=== PATIENT | female | born 1975 | race Caucasian/White ===

== ENCOUNTER 2024-06-22 12:20 | Emergency (ER) | payer BC, SELFPAY ==
[2024-06-22 12:24] VITALS: BP 179/108
[2024-06-22 13:27] LABS: % Basophils 0.4 % (0-2); % Eosinophils 0.2 % (0-6); % Immature Granulocytes 0.5 % (0-0.5); % Lymphocytes 16.4 % (20.5-51.1); % Monocytes 4.8 % (1.7-9.3); % Neutrophils 77.7 % (42.2-75.2); Absolute Lymphocytes 0.9 10^3/uL (1.2-3.4); Absolute Monocytes 0.3 10^3/uL (0.1-0.6); Absolute Neutrophils 4.4 10^3/uL (1.4-6.5); Hematocrit 38.2 % (37.0-47.0); Hemoglobin 13.9 g/dL (12.0-16.0); Mean Corp Hgb Conc. 36.4 g/dL (33.0-37.0); Mean Corpuscular Hgb 33.8 pg (27.0-31.0); Mean Corpuscular Volume 92.9 fL (81.0-99.0); Mean Platelet Volume 10.9 fL (7.4-10.4); Nucleated Red Blood Cells % 0 %; Platelet Count 254 10^3/uL (130-400); Red Blood Cell Count 4.11 10^6/uL (4.20-5.40); Red Cell Dist. Width 11.1 % (11.5-14.5); White Blood Cell Count 5.6 10^3/uL (4.8-10.8)
[2024-06-22 13:30] LABS: HCG, Urine Qualitative Screen Negative
[2024-06-22 13:48] LABS: Blood Urea Nitrogen 8 mg/dl (7-17); Calcium 9.9 mg/dl (8.4-10.2); Carbon Dioxide 22 mmol/L (22-30); Chloride 105 mmol/L (98-107); Glucose 113 mg/dl (70-99); Potassium 3.8 mmol/L (3.5-5.1); Sodium 136 mmol/L (135-145); eGFR > 60.00
[2024-06-22 14:17] LABS: TSH Reflex To Free T4 1.15 uIU/ml (0.47-4.68)
--- NOTE | 2024-06-22 15:22 | ED.GENMED ---
History of Present Illness
General
Chief Complaint: Swallowing Problem
Source: patient
Time Seen by Provider: 06/22/24 12:43
History of Present Illness
History of Present Illness:
48yoF with no significant past medical history presenting for evaluation of a neck mass. She was speaking with her family members 4 days ago when her family members noted a lump on the right side of her neck. The mass is non-tender and seems to be
stable over the past several days. She started to have difficulty swallowing earlier today so she decided to come to the ED for evaluation. Patient denies any shortness of breath.
Past History
Past History
ED Past Medical History: None
Social History
Tobacco: Non-smoker
Alcohol: Occasional
Phy Exam
General Physical Exam
General Presentation: well appearing and no apparent distress
General age: appears stated age
General Skin: warm and dry
General Habitus: normal
General Mental: alert
ENT Exam
ENT Exam: pharynx normal, neck supple and other (+Firm, mobile mass present to the anterior right lower back in the area of the thyroid. No skin changes or warmth. )
Additional ENT: Airway patent. Tolerating oral secretions. Normal phonation.
Pulmonary Exam
Pulmonary Exam: no respiratory distress
Skin Exam
Skin Exam: normal color and warm/dry
Psychiatric Exam
Psychiatric Exam: normal mood/affect
Course
Orders/Labs/Results
Orders:
Orders
06/22/24 13:07
CT Neck With Iv Contrast Urgent
Comment:
Reason For Exam: R neck mass, dysphagia
06/22/24 13:08
Test Result ONCE
06/22/24 13:13
Basic Metabolic Panel Urgent
Complete Blood Count/With Diff Urgent
HCG, Urine Qualitative Screen Urgent
Date Specimen was Collected: 06/22/24
Time Specimen was Collected: 13:13
TSH Reflex To Free T4 Urgent
Abnormal Lab Results
06/22/24
13:13
RBC 4.11 L 10^6/uL
(4.20-5.40)
MCH 33.8 H pg
(27.0-31.0)
RDW 11.1 L %
(11.5-14.5)
MPV 10.9 H fL
(7.4-10.4)
Absolute Lymphs (auto) 0.9 L 10^3/uL
(1.2-3.4)
Neutrophils % 77.7 H %
(42.2-75.2)
Lymphocytes % 16.4 L %
(20.5-51.1)
Glucose 113 H mg/dl
(70-99)
06/22/24 13:13
06/22/24 13:13
Vital Signs
Initial and Last Documented VS:
Initial Vital Signs
Temp Pulse Resp BP Pulse Ox
97.9 F 91 18 179/108 99
06/22/24 12:24 06/22/24 12:24 06/22/24 12:24 06/22/24 12:24 06/22/24 12:24
Last Documented Vital Signs
Temp Pulse Resp BP Pulse Ox
97.9 F 89 16 166/69 96
06/22/24 12:24 06/22/24 15:39 06/22/24 15:39 06/22/24 15:39 06/22/24 15:39
MDM/Problems Addressed
Differential Diagnosis Includes:
48yoF here with a neck mass that she noticed a few days ago. Now having difficulty swallowing. She is hypertensive with otherwise normal vital signs. She is well appearing in no distress. Airway is patent on exam and she is tolerating oral
secretions without difficulty. There is a firm, mobile mass palpated on exam. Differential diagnosis includes but is not limited to: thyroid nodule, thyroiditis, cyst, lymphadenopathy, malignancy
Initial ED plan: Check CBC, BMP, TSH, and CT soft tissue neck.
*Critical Care Note
Total Time (30-74mins, 75-104mins- exclusive of procedures): Not Applicable
Update Note
Update Note:
Labs overall unremarkable including normal TSH. CT shows enlarged right thyroid lobe which contains a few nodules, the largest measuring up to 2.7cm. Radiology recommending nonemergent outpatient thyroid ultrasound. Findings discussed with patient
and copy of CT scan report provided to patient. She was advised to f/u closely with her PCP. ED return precautions discussed. She expressed understanding and is agreeable to plan. Patient discharged in stable condition.
ED Attending Note
-
Portions of this chart may have been created with voice recognition software.� Occasional wrong word or��sound alike� substitutions may have occurred due to the inherent limitations of voice recognition software.
Discharge Plan
Departure
Patient Disposition: Home (Routine Discharge)
Date of Disposition: 06/22/24
Time of Disposition: 16:18
Patient with high blood pressure during this ER visit?: Yes
Discharge Problem:
Thyroid nodule
Instructions: Thyroid nodules
Referrals:
Lyndon Tapia, DO [Family Provider] -
Activity Restrictions/Additional Instructions:
Please call your family doctor tomorrow for follow-up. You will need an ultrasound for further evaluation of the nodule seen on your CT scan.
Return to the ER with any worsening symptoms, drooling, or inability to swallow.
Interventions
Interventions:
*Risk Screen - Suicide Last Done: 06/22/24 13:23
*General Assessment Last Done: 06/22/24 13:23
*Neglect/Abuse Screening Last Done: 06/22/24 13:23
ED- Fall Risk Assessment Last Done: 06/22/24 13:23
*ED COVID-19 Vaccine History Last Done: 06/22/24 13:23
ED-EENT Assessment Last Done: 06/22/24 13:23
IJ-Trpnek-Vgbsnhjtcv Assessment Last Done: 06/22/24 13:23
ED- Pulmonary Assessment Last Done: 06/22/24 13:23
ED- Neurological Assessment Last Done: 06/22/24 13:23
Discharge Date and Time
Print Language: OMANI
[2024-06-22 15:39] VITALS: BP 166/69
== END 2024-06-22 16:25 | disposition home or self-care (01) ==
LOC: EMR 12:20
PROVIDERS: Physician Assistant; EMERGENCY PHYSICIAN Emergency Medicine; FAMILY PHYSICIAN Family Medicine
DX: E04.1 Nontoxic single thyroid nodule (principal); R13.10 Dysphagia, unspecified; R03.0 Elevated blood-pressure reading, without diagnosis of hypertension
CPT/HCPCS: 99285; 70491; 80048; 81025; 84443; 85025; Q9967

== ENCOUNTER → 2024-06-29 09:05 | Outpatient (REF) | payer BC, SELFPAY | LOC: RAD 09:05 | PROVIDERS: ATTENDING PHYSICIAN Physician Assistant Medical; REFERRING PHYSICIAN Otolaryngology | DX: E04.1 Nontoxic single thyroid nodule (principal) | CPT/HCPCS: 76536 ==